=== PATIENT | male | born 1990 | race Caucasian/White ===

== ENCOUNTER 2019-03-14 13:45 | Emergency (ER) | payer OTHER ==
[~2019-03-14] VITALS: Ht 180.3 cm; Wt 79.4 kg
[2019-03-14 13:52] VITALS: BP 142/84; Ht 180.3 cm; Wt 79.4 kg
[2019-03-14 14:33] LABS: BASOPHIL % 0.2 % (0-2); PLATELET COUNT 181 x10^3mcL (130-400); RED CELL DISTRIBUTION WIDTH 13.9 % (11.5-14.5)
[2019-03-14 15:36] LABS: CALCIUM 10.5 mg/dL (8.5-10.1); CARBON DIOXIDE 22.6 mmol/L (21-32); CREATININE SERUM 2.1 mg/dL (0.7-1.3); POTASSIUM SERUM 3.2 mmol/L (3.5-5.1)
[2019-03-14 15:41] LABS: ALBUMIN 4.1 g/dL (3.4-5.0); BILIRUBIN TOTAL 1.58 mg/dL (0.20-1.00)
[2019-03-14 15:42] LABS: TOTAL PROTEIN, SERUM 8.9 g/dL (6.4-8.2)
== END 2019-03-14 14:43 | disposition left against medical advice (07) ==
LOC: ED 13:45
PROVIDERS: Emergency Medicine
DX: G93.40 Encephalopathy, unspecified (principal); N28.9 Disorder of kidney and ureter, unspecified; E86.0 Dehydration; R74.0 Nonspecific elevation of levels of transaminase and lactic acid dehydrogenase [LDH]; F17.210 Nicotine dependence, cigarettes, uncomplicated; F15.90 Other stimulant use, unspecified, uncomplicated; Z72.89 Other problems related to lifestyle
CPT/HCPCS: 36415; J7030